=== PATIENT | female | born 1995 | race Caucasian/White ===

== ENCOUNTER 2021-03-17 20:36 | Emergency (ER) | payer OTHER ==
[~2021-03-17 20:36] MED LIST: GLUCOPHAGE 500500 MG PO
[2021-03-17 21:49] LABS: HEMOGLOBIN 13.4 gm/dl (12.3-15.3); RED BLOOD COUNT 5.43 M/UL (4.00-5.10); WHITE BLOOD COUNT 8.4 K/UL (4.5-11.0)
[2021-03-17 22:04] LABS: BUN/CREATININE RATIO 9 (0-10)
[2021-03-17] MEDS ORDERED: TORADOL 10 MG T10 MG PO (23:43)
[2021-03-17] MEDS ORDERED: ZOFRAN ODT 4 MG4 MG SL (23:43)
== END 2021-03-18 00:22 | disposition home or self-care (01) ==
LOC: ER1 20:36
PROVIDERS: Family Medicine
DX: R10.9 Unspecified abdominal pain (principal); Z90.49 Acquired absence of other specified parts of digestive tract; Z91.040 Latex allergy status
CPT/HCPCS: 80053; 81001; 83690; 84703; 85025; 96372; 99284; J1885